=== PATIENT | female | born 2000 | race Caucasian/White ===

== ENCOUNTER 2022-02-07 20:38 | Emergency (ER) | payer OTHER ==
[~2022-02-07 20:38] MED LIST: Iopamidol 300 61% 100 ML VIAL FS ONE
[2022-02-07] MEDS ORDERED: Fentanyl 100 MCG/2 ML VIAL ONE (20:54)
[2022-02-07 21:15] LABS: BHCG - Serum Negative (NEGATIVE); Pregs Control Background? CLEAR/WHITE (CLR/WHITE); Pregs Control Bar Appear? YES (CONTROL BAR)
[2022-02-07] MEDS ORDERED: Ondansetron PF 4 MG/2 ML Vial ONE (22:00)
[2022-02-07] MEDS ORDERED: Ketorolac Tromethamine 30 MG/ML VIAL ONE (23:08)
[2022-02-07] MEDS ORDERED: Morphine 2 MG/ML VIAL ONE (23:47)
== END 2022-02-07 23:38 | disposition home or self-care (01) ==
LOC: CSHERS 20:38
DX: S16.1XXA Strain of muscle, fascia and tendon at neck level, initial encounter (principal); S20.219A Contusion of unspecified front wall of thorax, initial encounter; V43.02XA Car driver injured in collision with other type car in nontraffic accident, initial encounter
CPT/HCPCS: 70450; 71260; 72125; 84703; 96374; 96375; 96376; J1885; J2270; J2405; J3010; Q9967